=== PATIENT | female | born 1970 | race Caucasian/White ===

== ENCOUNTER 2016-05-11 08:03 | Day surgery (SDC) | payer OTHER ==
[~2016-05-11] VITALS: Ht 165.1 cm; Wt 49.0 kg
--- NOTE | 2016-05-11 07:19 | PCM.HPANE ---
Patient Data Surgeon Admitting Provider: Attending Provider:Palomo Mann MD Primary Care Physician:Becky Miller PA-C Other Provider:Janina Banegasingham Anesthesia Reason for Visit Blood Rectum/Nausea & Vomiting Ht/WT & BMI Body Mass Index Allergies Coded Allergies: amoxicillin (Verified Allergy, Unknown, 05/11/16) lactose (Verified Allergy, Unknown, 05/11/16) Past Anesthesia History Anesthesia History: Denies:: Abnormal Airway, Anesthesia Reactions, Difficult Intubation, Fam Anesthesia Reaction, Fam Malignant Hypertherm, Malignant Hyperthermia Diabetes History Hx Diabetes?: No MRSA MRSA: No Medications Reported Medications Fluoxetine 10 Mg Bicily32 Mg PO DAILY 05/10/16 Alprazolam 0.5 Mg Tablet0.5 Mg PO BID PRN For Anxiety Ref 0 05/10/16 Lactobacillus Acidophilus (Probiotic)1 Each Capsule1 Each PO DAILY 02/05/14 Mesalamine (Pentasa)500 Mg Capsule.er1,000 Mg PO QID 30 Days Ref 0 02/05/14 Tramadol 50 Mg Lofqjq61-254 Mg PO TID PRN For Pain Ref 0 02/05/14 Noreth A-Et Estra/Fe Fumarate (Loestrin Fe 1.5-30 Tablet)1 Each Tablet1 Each PO DAILY #1 PKG Ref 0 02/05/14 Acyclovir 400 Mg Mosyxl524 Mg PO BID 30 Days Ref 0 02/05/14 Discontinued Reported Medications Multivitamin (Multivitamins)1 Each Capsule1 Each PO DAILY 02/05/14 Amitriptyline 25 Mg Tab25 Mg PO HS Ref 0 02/05/14 History HEENT History: Denies:: Abnormal Airway Difficult Intubation Dysphagia Hearing Problem Hx of Heart Problems?: No Cardiovascular History: Denies:: AICD Atrial Fibrillation Chest Pain Hypertension Pacemaker Valvular Heart Disease Hx of Respiratory Problem?: No Respiratory History: Denies:: Asthma COPD Cough Hemoptysis Pneumonia Tuberculosis Neurological History: Denies:: CVA Hx of GI Problems?: Yes Gastrointestinal History: Positive for:: Rectal Bleeding (OCC ) Denies:: Cirrhosis Diverticulitis Gastroesphageal Reflux Hiatal Hernia Female Hx: Denies:: Currently Musculoskeletal History: Denies:: Joint Replacement Psycho Social History: Positive for:: Anxiety Hx Depression Hx Surgeries?: Yes (ANAL SURGERY AT , 2009 RECTAL PROLAPSE) Hx Any Other Health Problems?: Yes Hx Diabetes: No Hx Alcohol Use: Yes (OCCASIONAL) Smoking Status: Never Smoker Stop/Bang Treated for Sleep Apnea?: No S-Snoring: Do You Snore Loudly: No T-Tired: feel tired, fatigued: No O-Obsered: Observed not breath: No P-Blood Pressure: treated: No B- Body Mass Index > 35 kg/m2: No A- Age over 50: No N- Neck Large Circumference: No G- Gender Male: No LUIZ Risk Assessment: Low Risk, <3 Yes Risk Assessment Category Category 1A: Patient has history of documented sleep apnea, and HAS NOT received any narcotic, sedative or anesthesia administration during this stay. Category 1B: Patient has history of documented sleep apnea, and HAS received any narcotic , sedative or anesthesia administration during this stay Category 2: Patient has SUSPECTED Obstructive Sleep Apnea, and HAS received any narcotic , sedative or anesthesia administration during this stay. Category 3: Patient has SUSPECTED Obstructive Sleep Apnea and HAS NOT received narcotic, sedative or anesthesia administration during this stay. Category 4: Outpatient in Procedural Areas with known sleep apnea or who screen positive for High Risk via the STOP/BANG questionnaire. Exam Exam General Appearance: Alert, Oriented X3, Cooperative, No Acute Distress HEENT/AIRWAY: MP 1 Lungs: Clear to Auscultation, Normal Air Movement Heart: Exam Unremarkable, Regular Rate/Rhythm, No Murmurs/Rubs/Gallops Plan Impression Patient chart reviewed, patient interviewed and anesthestic plan with risks, benefits, and alternatives discussed, and informed consent obtained. ASA Physical Status: ASA2 Mod Systemic Disease Anesthetic Plan: MAC Bene/Risks/Altern/Consents: Yes HP Complete Prior to Induction: Yes Solomon Lama MD May 11, 2016 07:18
[~2016-05-11 08:03] MED LIST: ACYC400T2 PO; ALPR0.5T8 PO; FLUO10TA PO; LACT1CAP65 PO; Lactated Ringer's 1,000 ML IV ONE; MESA500C PO; MULT1CAP33 PO; NORE-101 PO; TRAM50TA2 PO
[2016-05-11] MEDS ORDERED: Propofol 10,000 mCg/mL 20 mL Inj ONE (08:04)
[2016-05-11] MEDS ORDERED: fentaNYL-PF 50 mCg/mL 2 mL Inj ONE (08:04)
[2016-05-11 08:27] VITALS: BP 121/78; PULSE 92; RESP 17; O2SAT 95
[2016-05-11] MEDS ORDERED: Lactated Ringer's 1,000 ML IV SCH (09:39)
[2016-05-11] MEDS ORDERED: MetoCLOpramide 5 mg/mL 2 mL Inj IVPUSH PRN (09:40)
[2016-05-11] MEDS ORDERED: Ondansetron 2 mg/mL 2 mL Inj IVPUSH PRN (09:40)
[2016-05-11 10:11] VITALS: BP 116/72; PULSE 82; RESP 12; O2SAT 99
[2016-05-11 10:21] VITALS: BP 121/74; PULSE 73; RESP 14; O2SAT 100
--- NOTE | 2016-05-11 10:25 | PCM.ANEP1 ---
Post Anesthesia Phase 1 PACU Phase 1 Assessment Vital Signs Vital Signs Date Time Temp Pulse Resp B/P Pulse Ox O2 Delivery O2 Flow Rate FiO2 05/11/16 10:11 36.7 82 12 116/72 99 Room Air 05/11/16 08:27 92 17 121/78 95 Room Air Anesthetic Administered: MAC Level of Alertness: Awake, talking PAYAN's with Equal Strength: Yes Pain: No Nausea or Vomiting: No Oxygen Delivery: Nasal Cannula Lungs: Clear to Auscultation, Normal Air Movement Dermatome Level: Full Sensation Solomon Lama MD May 11, 2016 10:25
[2016-05-11 10:31] VITALS: BP 120/69; PULSE 67; RESP 12; O2SAT 100
--- NOTE | 2016-05-11 10:32 | PCM.ANEP2 ---
Post Anesthesia Evaluation ASA/CMS Post Anesthesia VS in Patient's Normal Range?: Yes Resp Stable; Airway Patent?: Yes CV Function & Hydration Stable: Yes Mental Status Recovered?: Yes Pain control Satisfactory?: Yes N/V Control Satisfactory?: Yes Solomon Lama MD May 11, 2016 10:32
--- NOTE | 2016-05-11 11:17 | ENDO ---
[address] [address] ENDOSCOPY PROCEDURE PATIENT: PATRICK GREY : 1970 MR#: [id number] ADMIT: 05/11/2016 JOB ID: [id number] PRIMARY PROVIDER: Becky Miller PA-C PROCEDURE: Esophagogastroduodenoscopy with biopsies, and a colonoscopy with biopsies. INDICATIONS: A 45-year-old female with Crohn's who has been experiencing nausea, vomiting, and weight loss. She additionally has seen some blood per rectum. Endoscopic examination is pursued. EQUIPMENT: GIF-H180-J, and a PCF-H180-AL. SEDATION: Monitored anesthesia as provided by Dr. Solomon Lama. COMPLICATIONS: None identified. BOWEL PREPARATION: Fair, adequate exam. PROCEDURE INFORMATION: After the risks and benefits were explained, written and verbal informed consent was obtained. The patient was brought into the endoscopy suite and placed into the left lateral decubitus position. Sedation was achieved as above. The scope was introduced into the mouth through the bite block, and advanced to the second portion of the duodenum. The scope was slowly withdrawn to carefully examine the mucosa for any defects or lesions. Retroflexed views were accomplished in the stomach. The stomach was decompressed, the scope removed from the patient who tolerated the procedure well. The patient was then turned around. A digital rectal examination accomplished. 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 The scope was introduced into the rectum and advanced to the cecum as identified by the appendiceal orifice and ileocecal valve. The terminal ileum was interrogated. The scope then slowly withdrawn to carefully examine the mucosa for any defects or lesions. Multiple direct views were made through the dentate line. The colon was decompressed, the scope removed from the patient who tolerated the procedure well. FINDINGS: 1. Duodenum: There was an extremely sharp corner from the bulb into the second portion. No obvious actual stenosis, but there was clear-cut inflammation and a small punctate ulceration associated with this region. I took a biopsy from this location. The second portion of the duodenum appeared visually normal, but we took a couple of biopsies considering the profound symptoms and weight loss. 2. Stomach: No outlet obstruction. No ulcers. No mass lesion. Minimal diffuse gastropathy. A couple of erosive features. Random biopsy was taken for exclusion of Helicobacter or other pathology. Retroflexed views of the LES were unremarkable apart from a small hiatal hernia. 3. Esophagus: The squamocolumnar junction correlated with the top of the gastric folds. The GEJ was at about 37 cm from the incisors. The patient had LA grade A erosive esophagitis. 4. Terminal ileum: The patient had several scattered erosions and small superficial ulcers in the visualized terminal ileum. We saw about 10 cm worth of ileum. No stricture. No stenosis. Disease would be considered mild. 5. Colon: No evidence of any macroscopic colitis. No evidence of proctitis. Random colon biopsies were taken for exclusion of microscopic disease. There were some scattered diverticula in a slightly tortuous sigmoid. No other pathology identified throughout. ENDOSCOPIC DIAGNOSES: 1. LA grade A erosive esophagitis. 2. Hiatal hernia. 3. Erosive gastropathy. 4. Erosive focal duodenum with a sharp corner. 5. Mild terminal ileal inflammation. 6. Mild colonic diverticulosis. 7. Lax anal sphincter mechanism. RECOMMENDATIONS: 1. Await histopathology. 2. The patient will be started on a proton pump inhibitor. 3. Will follow up in the short term on the clinical effect and determine the next steps at that time.
--- NOTE | 2016-05-18 15:59 | PATH ---
SURGICAL PATHOLOGY Attending Physician:Jessica Hitchcock CASE STATUS: Signed Out * Amended * PATIENT NAME: PATRICK GREY PID: [id number] : 1970 DATE COLLECTED:05/11/2016 17:19 SPECIMEN: 1: Duodenum, Biopsy 2: Duodenum, Biopsy 3: Gastric, Biopsy 4: Colon, Biopsy CLINICAL HISTORY: 1). DUODENUM BIOPSY 2). PROXIMAL DUODENUM BIOPSY 3). GASTRIC BIOPSY 4). RANDOM COLON BIOPSY FINAL DIAGNOSIS: 1. Duodenum, Biopsy: Portion of duodenal mucosa with a well-preserved villous architecture and no significant histomorphologic abnormality. No active inflammation or pathogenic organisms identified. Negative for dysplasia and neoplasia. 2. Proximal Duodenum, Biopsy: Focal active inflammation with gastric surface cell metaplasia, suggestive of peptic duodenitis. 3. Gastric Biopsy: Superficial portion of gastric fundic mucosa with no significant histomorphologic abnormality. Negative for H. pylori organisms by immunohistochemistry studies. 4. Colon, Random Biopsy: Superficial portions of colorectal mucosa with no significant histomorphologic abnormality. There is no evidence of microscopic colitis, active inflammation, pathogenic organisms, granulomas, dysplasia, or neoplasia. ICD10 K29.7 This case was reviewed and interpreted by Dr. Christiana Mobley. The final diagnosis is unchanged. This amendment is issued in order for the report to cross the interface and be available in the hospital electronic medical record. GROSS DESCRIPTION: The specimen is received in four formalin filled containers labeled with the patient's name. 1). The specimen is sublabeled "duodenum" and consists of a 0.3 x 0.3 x 0.2 CM portion of tissue which is entirely submitted in cassette 1A. 2). The specimen is sublabeled "proximal duodenum" and consists of 2 extremely tiny portions of tissue which aggregate to 0.1 x 0.1 x 0.1 CM. The specimen is entirely submitted in cassette 2A. 3). The specimen is sublabeled "gastric" and consists of a 0.3 x 0.3 x 0.3 CM portion of tissue which is entirely submitted in cassette 3A. 4). The specimen is sublabeled "random colon" and consists of 2 portions of tissue which aggregate to 0.3 x 0.2 x 0.2 CM. The specimen is entirely submitted in cassette 4A. 05/11/2016 DAC MICRO DESCRIPTION: IMMUNOHISTOCHEMISTRY: Block 3A: H. pylori: Negative. ICD-9 CODES: CPT CODES: 1: 39545 2: 24538 3: 41356, 05304 4: 03216 AMENDMENT(S): Amended: 05/18/2016 by Tita Meneses Reason:Miscellaneous The final diagnosis is unchanged. This amendment is issued in order for the report to cross the interface and be available in the hospital electronic medical record. Previous Signout Date: 05/14/2016 Electronically Signed Out Elma Stone MD [facility] [address], [place] [address] Technical component performed at [facility], [facility] [address], [place], [address]
== END 2016-05-11 23:59 | disposition home or self-care (01) ==
LOC: END 08:03
PROVIDERS: ATTEND Internal Medicine Gastroenterology
DX: K62.5 Hemorrhage of anus and rectum (principal); R11.2 Nausea with vomiting, unspecified; K29.70 Gastritis, unspecified, without bleeding; K22.10 Ulcer of esophagus without bleeding; K44.9 Diaphragmatic hernia without obstruction or gangrene; K57.30 Diverticulosis of large intestine without perforation or abscess without bleeding; K50.90 Crohn's disease, unspecified, without complications; R63.4 Abnormal weight loss; F41.9 Anxiety disorder, unspecified; F32.9 Major depressive disorder, single episode, unspecified; M79.7 Fibromyalgia; Z68.1 Body mass index [BMI] 19.9 or less, adult
CPT/HCPCS: 43239; 45380; J2250; J3010; J7120